=== PATIENT | male | born 2000 | race Caucasian/White ===

== ENCOUNTER 2020-12-19 09:47 | Emergency (ER) | payer OTHER, SELFPAY ==
--- NOTE | ~2020-12-19 | XR_ITS ---
XR foot RT min 3V 12/19/2020 10:59 INDICATION: Right foot pain PROCEDURE: 6 views right foot COMPARISON: No prior studies for comparison. FINDINGS: Fracture, dislocation or subluxation is not identified. Lisfranc joint intact. The soft tis sues appear within normal limits. No foreign bodies are identified. IMPRESSION: 1: NO ACUTE BONE OR JOINT ABNORMALITY IDENTIFIED. Reviewed, dictated and finalized at location B.
[2020-12-19 09:51] VITALS: BP 149/91; PULSE 93; RESP 15; TEMP 36.8; O2SAT 98
[2020-12-19 09:59] VITALS: BP 149/91; PULSE 98; RESP 15; TEMP 37.1; O2SAT 98
--- NOTE | 2020-12-19 11:28 | ED.LOWEXIN ---
HPI - Extremity Injury (Lower) General Chief Complaint: Extremity Injury, Lower Stated Complaint: right foot wound Time Seen by Provider: 12/19/20 11:06 Source: patient Mode of arrival: wheelchair Limitations: no limitations History of Present Illness HPI Narrative: This is a 20-year-old male that presents to the emergency department for right, lateral foot pain since this morning. No known injury or trauma. Pain is worse with movement and palpation of the area. Relieved with rest. He has not taken anything for pain. Denies current fever, erythema, edema, or numbness. Related Data Allergies Allergy/AdvReac Type Severity Reaction Status Date / Time poison chelsey extract Allergy Mild rash Verified 03/22/17 12:22 Review of Systems Review of Systems: Narrative: CONSTITUTIONAL: Denies fever SKIN: Denies rash MUSCULOSKELETAL: Reports joint pain, and myalgia. NEUROLOGIC: Denies numbness All systems reviewed & are unremarkable except as noted in HPI and below PMFSH Past Medical History Medical History (Updated 12/19/20 @ 11:33 by Lelo Faulkner PA-C) No active medical problems Social History Social History (Updated 12/19/20 @ 11:29 by Lelo Faulkner PA-C) Substance use: never Gender identity (if verbalized by the patient): Male Exam Narrative: Exam Narrative: GENERAL: Well-appearing, well-nourished, and in no acute distress. HEAD: Normocephalic, atraumatic. EYES: EOMI. EXTREMITIES: Normal range of motion. No edema, erythema, or obvious deformity. Normal DP pulses. Normal sensation SKIN: Warm, dry, no rash. NEURO: No focal deficits. Alert and oriented x3. PSYCH: Normal mood and affect Course Vital Signs Vital signs: Vital Signs Temperature 98.3 F 12/19/20 09:51 Pulse Rate 93 12/19/20 09:51 Respiratory Rate 15 12/19/20 09:51 Blood Pressure 149/91 H 12/19/20 09:51 Pulse Oximetry 98 12/19/20 09:51 Temperature 98.7 F 12/19/20 09:59 Pulse Rate 98 12/19/20 09:59 Respiratory Rate 15 12/19/20 09:59 Blood Pressure 149/91 H 12/19/20 09:59 Pulse Oximetry 98 12/19/20 09:59 MDM - Extremity Injury (Lower) MDM Narrative Medical decision making narrative: Patient presents to the emergency department for right foot pain since this morning. No known injury or trauma. He is neurovascularly intact. Right foot x-ray is without acute osseous abnormalities. Patient placed in Riki wrap and given crutches. Instructed to rest, ice and take [id number] pain medication as needed. He is to follow-up with primary care doctor. He was given warnings to return to the ER Imaging Data Radiologist's impression: ITS Impressions Foot X-Ray 12/19/20 11:04 IMPRESSION: 1: NO ACUTE BONE OR JOINT ABNORMALITY IDENTIFIED. Critical Care Time Critical Care Time Critical Care Time: No Discharge Plan Discharge Clinical Impression: Foot sprain Qualifiers: Encounter type: initial encounter Laterality: right Qualified Code(s): S93.601A - Unspecified sprain of right foot, initial encounter Patient Disposition: Home, Self-Care Condition: Stable Instructions: Foot Sprain (ED) Additional Instructions: Return to the emergency department if you experience fever, redness and swelling of your foot, numbness, or any other symptoms that are concerning to you Rest. Elevate. Ice the area. Tylenol or ibuprofen as needed for pain Follow-up with primary care doctor Follow-up/Referrals: Sami Abraham MD [Physician] - 1 Week PHYSICIAN,OUTDOOR [employer]SUITS INSTRUCTOR [Primary Care Provider] -
[2020-12-19 11:58] VITALS: BP 142/94; PULSE 78; RESP 16; O2SAT 97
== END 2020-12-19 12:00 | disposition home or self-care (01) ==
PROVIDERS: Emergency Provider Emergency Medicine
DX: S93.601A Unspecified sprain of right foot, initial encounter (principal); X58.XXXA Exposure to other specified factors, initial encounter
CPT/HCPCS: 73630; 99283

== ENCOUNTER 2023-12-24 10:34 | Emergency (ER) | payer BC, SELFPAY ==
[2023-12-24 10:46] VITALS: BP 144/87; PULSE 76; RESP 16; TEMP 36.6; O2SAT 100
--- NOTE | 2023-12-24 10:58 | ED.SKABFB ---
HPI - Skin/Abscess/Foreign Bdy General Chief complaint: Skin/Abscess/Foreign Body Stated complaint: Poison Karo Time Seen by Provider: 12/24/23 11:04 Source: patient, RN notes reviewed and old records reviewed Mode of arrival: ambulatory Limitations: no limitations History of Present Illness HPI narrative: 23 year old male who presents to [facility] care with complaints of exposure to poison karo. Patient reports that he was weed eating on Thursday and he has developed small area of rash to his left lower anterior leg, to his lower abdomen and to genital area, states noted new area around left eye since yesterday. Patient reports that areas are itchy with no drainage noted.Patient denies any difficulty with his breathing or with swallowing MD complaint: rash Onset (ago): day(s) (3) Location: face (around left eye), chest (lower abdomen), genitals and LLE Severity: moderate Quality: pruritic Treatments prior to arrival: OTC topical medication Related Data Allergies Allergy/AdvReac Type Severity Reaction Status Date / Time poison akro extract Allergy Mild rash Verified 03/22/17 12:22 Review of Systems Review of Systems: CONSTITUTIONAL: Denies fever, chills, or sweats. CARDIOVASCULAR: Denies chest pain, palpitations, or edema. RESPIRATORY: Denies cough or dyspnea. SKIN: Reports small patches of red raised rash to left lower leg, to mid abdomen area and to genital area, new area around left eye and inner eye near nose is itchy MUSCULOSKELETAL: Denies joint pain or myalgia. NEUROLOGIC: Denies headache, numbness, or weakness. All systems reviewed & are unremarkable except as noted in HPI and below PMFSH Past Medical History Medical History (Updated 12/25/23 @ 08:43 by Florecita Gómez NP) Asthma Fracture of left elbow Pilonidal cyst Surgical History Surgical History (Updated 12/25/23 @ 08:34 by Florecita Gómez NP) History of placement of ear tubes History of tympanoplasty of left ear S/P tonsillectomy and adenoidectomy Social History Social History (Updated 12/19/20 @ 11:29 by Lelo Faulkner PA-C) Substance use: never Gender identity (if verbalized by the patient): Male Comments At time of signature, agree with nursing past medical, surgical, social and family history. There is no relevant family history pertinent to the presenting complaint Exam Narrative: GENERAL: Well-appearing, well-nourished, and in no acute distress. HEAD: Normocephalic, atraumatic. EYES: PERRLA, conjunctivae clear, and EOMI.small area of red raised rash to inner canthus of left eye and under eye ENT: Mucous membranes moist. Oropharynx without edema, erythema or lesions. NECK: Supple. No lymphadenopathy CHEST: Clear to auscultation. No respiratory distress.SAO2 100% on room air HEART: Regular rate and rhythm. SKIN: Warm, dry.? Patches of red raised rash to left lower leg, lower abdomen and in genital area is itchy NEURO:? Alert and oriented x3. PSYCH: Normal mood and affect Course Course Emergency Course: Patient is aware of diagnosis, understands and agrees to treatment plan.? Anticipatory guidance given.? Patient agrees to follow-up as directed and is aware of reasons to seek care at the emergency department. Portions of this record may have been created with voice recognition software Level of Care: Express Care Visit Vital Signs Vital signs: Vital Signs Temperature 36.6 C 12/24/23 10:46 Pulse Rate 76 12/24/23 10:46 Respiratory Rate 16 12/24/23 10:46 Blood Pressure 144/87 H 12/24/23 10:46 Pulse Oximetry 100 12/24/23 10:46 Oxygen Delivery Room Air 12/24/23 10:46 Temperature 36.6 C 12/24/23 10:59 Pulse Rate 76 12/24/23 10:59 Respiratory Rate 16 12/24/23 10:59 Blood Pressure 144/87 H 12/24/23 10:59 Pulse Oximetry 100 12/24/23 10:59 Oxygen Delivery Room Air 12/24/23 10:59 Reviewed MDM - Skin/Abscess/Foreign Bdy MDM Narrative Medical decision making
[2023-12-24 10:59] VITALS: BP 144/87; PULSE 76; RESP 16; TEMP 36.6; O2SAT 100
[2023-12-24] MEDS: methylPREDNISolone ACETATE 80 MG/ML VIAL IM (11:11)
== END 2023-12-24 11:28 | disposition home or self-care (01) ==
PROVIDERS: Emergency Provider Registered Nurse
DX: L23.7 Allergic contact dermatitis due to plants, except food (principal); J45.909 Unspecified asthma, uncomplicated
CPT/HCPCS: 96372; 99213; G0463; J1010